=== PATIENT | female | born 1965 | race Caucasian/White ===

== ENCOUNTER 2017-12-21 07:33 | Inpatient (IN) | payer OTHER ==
[~2017-12-21 07:33] MED LIST: ATROPINE 1 MG/10 ML SYRINGE IV; CEFAZOLIN 1 GM INJ; CEFAZOLIN 2 GM/50 ML (PMX) 50 ML IVPB; DIPHENHYDRAMINE 50 MG INJ IV; EPHEDrine SULFATE 50 MG/5 ML SYG IV; FENTAnyl 50 MCG/ML VIAL IV; HYDROmorphONE (0.2 MG/ML) 10ML SYG IV; LABETALOL HCL 20MG INJ IV; LACTATED RINGER'S 1,000 ML IV*; MEPERIDINE 25 MG INJ IV; MIDAZOLAM 1 MG/ML 2 ML INJ IV; ONDANSETRON 4 MG INJ IV; OXYCODONE/ACETAMINOPHEN (5/325) TAB PO; hydrALAzine 20 MG INJ IV; morphine (1 MG/ML) 10ML SYRINGE IV
[2017-12-21] MEDS ORDERED: GLYCOPYRROLATE 0.4 MG INJ (08:57)
[2017-12-21] MEDS ORDERED: LIDOCAINE 2% (SDV) 5 ML INJ (08:57)
[2017-12-21] MEDS ORDERED: DEXAMETHASONE 4 MG/ML 1 ML INJ (08:57)
[2017-12-21] MEDS ORDERED: NEOSTIGMINE 3 MG/3 ML SYRINGE (08:57)
[2017-12-21] MEDS ORDERED: PROPOFOL 20 ML (08:57)
[2017-12-21] MEDS ORDERED: FENTAnyl 50 MCG/ML VIAL (08:57)
[2017-12-21] MEDS ORDERED: ROCURONIUM 50 MG INJ (08:57)
[2017-12-21] MEDS ORDERED: MIDAZOLAM 1 MG/ML 2 ML INJ (08:57)
[2017-12-21] MEDS ORDERED: ONDANSETRON 4 MG INJ (08:58)
[2017-12-21] MEDS ORDERED: ACETAMINOPHEN 325 MG TAB PO (09:30)
[2017-12-21] MEDS ORDERED: HYDROmorphONE 0.5 MG/0.5 ML SYG IV (09:30)
[2017-12-21] MEDS ORDERED: CEPASTAT LOZENGE MT (09:30)
[2017-12-21] MEDS ORDERED: NALOXONE (0.4 MG/ML) INJ IV (09:30)
[2017-12-21] MEDS ORDERED: CEFAZOLIN 1 GM/50 ML (PMX) 50 ML IVPB (09:30)
[2017-12-21] MEDS ORDERED: DIPHENHYDRAMINE 50 MG INJ IV (09:30)
[2017-12-21] MEDS ORDERED: ONDANSETRON 4 MG INJ IV (09:30)
[2017-12-21] MEDS ORDERED: AL HYDROX/MG HYDROX/SIMETH 30 ML CUP PO (09:30)
[2017-12-21] MEDS ORDERED: BISACODYL 10 MG SUPP PR (09:30)
[2017-12-21] MEDS ORDERED: SURGIFOAM POWDER 1 GM KIT (09:37)
[2017-12-21] MEDS ORDERED: BUPIVACAINE 0.25% (MPF) 30 ML INJ (09:38)
[2017-12-21] MEDS ORDERED: POLYMYXIN/BACITRACIN 1L IRRIG (09:48)
[2017-12-21] MEDS: THROMBIN 5000 UNIT VIAL (10:30)
[2017-12-21] MEDS: HEPARIN 1000 UNITS/ML 10 ML INJ (10:30)
[2017-12-21] MEDS: POLYMYXIN/BACITRACIN 1L IRRIG IRR (10:30)
[2017-12-21] MEDS: BUPIVACAINE 0.25%/EPI (SDV) 30 ML INJ INJ (10:30)
[2017-12-21] MEDS ORDERED: LABETALOL HCL 20MG INJ (10:31)
[2017-12-21] MEDS ORDERED: SUCCINYLCHOLINE CHLORIDE 100 MG/5 ML SYG IV (10:46)
[2017-12-21] MEDS: CA CHLORIDE 10% 10 ML SYRINGE (10:58)
[2017-12-21] MEDS: FENTAnyl 50 MCG/ML VIAL (11:01)
[2017-12-21] MEDS: HYDROmorphONE 0.2 MG/ML PCA IV (11:46)
[2017-12-21] MEDS: D5W-0.45 NACL + KCL 20 MEQ 1,000 ML IV ×2 (15:08→19:22)
[2017-12-21] MEDS: CEFAZOLIN 1 GM/50 ML (PMX) 50 ML IVPB (17:44)
[2017-12-21] MEDS: DOCUSATE SODIUM 100 MG CAP PO (20:42)
[2017-12-22] MEDS: CEFAZOLIN 1 GM/50 ML (PMX) 50 ML IVPB ×2 (01:32→09:08)
[2017-12-22] MEDS: D5W-0.45 NACL + KCL 20 MEQ 1,000 ML IV ×3 (01:33→15:22)
[2017-12-22 05:51] LABS: ADD MAN DIFF? NO
[2017-12-22 06:03] LABS: BASOPHILS % 0.2 % (0.0-2.0); HEMATOCRIT 32.5 % (37.0-47.0); HEMOGLOBIN 10.7 g/dl (12.0-16.0); LYMPHOCYTES # 2.1 10^3/ul (0.8-2.9); MEAN CORPUSCULAR HEMOGLOBIN 27.8 pg (29.0-33.0); MEAN CORPUSCULAR HGB CONC 32.9 g/dl (32.0-37.0); MEAN CORPUSCULAR VOLUME 84.4 fl (82.0-101.0); MEAN PLATELET VOLUME 10.4 fl (7.4-10.4); MONOCYTE # 1.1 10^3/ul (0.3-0.9); MONOCYTES % 8.3 % (0.0-11.0); NEUTROPHIL # 9.9 10^3/ul (1.6-7.5); PLATELET COUNT 256 10^3/UL (140-415); RED BLOOD COUNT 3.85 10^6/ul (4.20-5.40); RED CELL DISTRIBUTION WIDTH 13.5 % (11.5-14.5)
[2017-12-22 06:03] LABS: WHITE BLOOD COUNT 13.2 10^3/ul (4.8-10.8)
[2017-12-22 06:15] LABS: ANION GAP 13 (8-16); BLOOD UREA NITROGEN 9 mg/dl (7-20); CALCIUM 9.1 mg/dl (8.4-10.2); CARBON DIOXIDE 24 mmol/L (21-31); CHLORIDE 109 mmol/L (97-110); CREATININE 0.55 mg/dl (0.44-1.00); GLUCOSE 149 mg/dl (70-220); POTASSIUM 4.6 mmol/L (3.5-5.1); SODIUM 141 mmol/L (135-144)
[2017-12-22] MEDS: LEVOTHYROXINE 50 MCG TAB PO (06:37)
[2017-12-22] MEDS ORDERED: BUPIVACAINE 0.25%/EPI (MDV) 50 ML VIAL INJ (07:00)
[2017-12-22] MEDS: CYCLOBENZAPRINE 10 MG TAB PO (09:08)
[2017-12-22] MEDS: DOCUSATE SODIUM 100 MG CAP PO (09:08)
[2017-12-22] MEDS: HYDROCODONE/APAP (10/325) TAB PO ×2 (09:17→15:24)
[2017-12-22] MEDS ORDERED: HYDROCODONE/APAP (10/325) TAB PO (09:30)
== END 2017-12-22 15:40 | disposition home or self-care (01) | DRG 517 ==
LOC: REC 07:33 → MS1 12:52
PROC: 01NB0ZZ Release Lumbar Nerve, Open Approach (ICD-10-PCS; principal; 2017-12-21 09:30)
DX: M48.07 Spinal stenosis, lumbosacral region (principal); E03.9 Hypothyroidism, unspecified; M54.17 Radiculopathy, lumbosacral region
CPT/HCPCS: 72020; 80048; 83735; 84703; 85025; 86999; 97116; 97163; 97530